=== PATIENT | female | born 1985 | race Caucasian/White ===

== ENCOUNTER 2017-05-18 14:50 | Inpatient (IN) | payer MEDICAID ==
[~2017-05-18] VITALS: Ht 165.1 cm; Wt 62.1 kg
[2017-05-18] MEDS ORDERED: ACETAMINOPHEN 325 MG TAB PO PRN (17:00)
[2017-05-18] MEDS: BETAMET NA PHOS/AC(6 MG/ML) 5ML INJ IM SCH (17:39)
[2017-05-18 17:54] VITALS: BP 102/65; PULSE 64; RESP 18
--- NOTE | 2017-05-18 18:26 | HP ---
Date/Time of Note Date/Time of Note DATE: 05/18/17 TIME: 18:19 OB - History Hx of Present Free Text/Dictation 31 years old female EDC July 04, 2017 previous , admitted to [facility] ,referred from perinatology@ 33 weeks and 3 days suspected IUGR, to receive betamethasone. Chief Complaint: Suspected IUGR Estimated Due Date: Jul 04, 2017 : 3 Para: 2 Care: Good Care Ultrasounds: Normal mid trimester US Past Family/Social History * Past Medical, Surgical, Family and Obstetric Histories reviewed from chart. Rubella: immune RPR/VDRL: Negative GBS Status: Unknown HBsAG: Negative OB Admission Exam Vital Signs Vital Signs Vital Signs Date Time Temp Pulse Resp B/P Pulse Ox O2 Delivery O2 Flow Rate FiO2 05/18/17 17:54 98.1 64 18 102/65 99 Room Air Physical Exam HEENT: WNL Lungs: Clear, Equal Abdomen: WNL Extremities: Normal Reflexes: Normal Membranes: Intact Heart Rate: 140's Accelerations: Accelerations Present Decelerations: No Decelerations Varibility: Moderate Contractions on Admission: None NOREEN FERRER MD May 18, 2017 18:26
--- NOTE | 2017-05-18 18:26 | HP ---
Date/Time of Note Date/Time of Note DATE: 05/18/17 TIME: 18:19 OB - History Hx of Present Free Text/Dictation 31 years old female EDC July 04, 2017 previous , admitted to [facility] ,referred from perinatology@ 33 weeks and 3 days suspected IUGR, to receive betamethasone. Chief Complaint: Suspected IUGR Estimated Due Date: Jul 04, 2017 : 3 Para: 2 Care: Good Care Ultrasounds: Normal mid trimester US Past Family/Social History * Past Medical, Surgical, Family and Obstetric Histories reviewed from chart. Rubella: immune RPR/VDRL: Negative GBS Status: Unknown HBsAG: Negative OB Admission Exam Vital Signs Vital Signs Vital Signs Date Time Temp Pulse Resp B/P Pulse Ox O2 Delivery O2 Flow Rate FiO2 05/18/17 17:54 98.1 64 18 102/65 99 Room Air Physical Exam HEENT: WNL Lungs: Clear, Equal Abdomen: WNL Extremities: Normal Reflexes: Normal Membranes: Intact Heart Rate: 140's Accelerations: Accelerations Present Decelerations: No Decelerations Varibility: Moderate Contractions on Admission: None NOREEN FERRER MD May 18, 2017 18:26
[2017-05-18] MEDS ORDERED: INFLUENZA VIRUS VACCINE 0.5 ML (DISPENSING) IM* ONE (18:30)
[2017-05-19] MEDS: FERROUS SULFATE (EC) 325 MG TAB PO SCH (09:42)
[2017-05-19] MEDS: PRENATAL VITAMIN PO SCH (09:42)
[2017-05-19] MEDS: LACTATED RINGER'S 1,000 ML IV SCH ×2 (12:16→19:34)
--- NOTE | 2017-05-19 13:07 | RADRPT ---
PROCEDURE: US OB biophysical profile. CLINICAL INDICATION: decreased movements TECHNIQUE: Multiple sonographic images of the pelvis were obtained. The images were reviewed on a PACS workstation. COMPARISON: No prior studies are available for comparison. FINDINGS: There is a twin viable intrauterine gestation. There is a normal amount of amniotic fluid with an MAURY = cm. Twin A Cardiac activity is present with 146 beats per minute. There is a vertex presentation. The placenta is anterior. MVP = 3.5 cm Biophysical profile: movement 2/2 tone 2/2. breathing 2/2 MAURY 2/2 Total 8/8 Twin B Cardiac activity is present with 142 beats per minute. There is a breech presentation. The placenta is anterior. MVP = 4.1 cm Biophysical profile: movement 2/2 tone 2/2. breathing 2/2 MAURY 2/2 Total 8/8 RPTAT: AA . IMPRESSION: Normal biophysical profile for twin gestation . Possible nuchal cord seen for both twins. . .Beau Torres MD, MD Date Time Electronically viewed and signed by .Beau Torres MD, MD on 05/19/2017 13:06 .S/
--- NOTE | 2017-05-19 15:47 | RADRPT ---
PROCEDURE: CERVICAL LENGTH ULTRASOUND CLINICAL INDICATION: Twins. Contractions. TECHNIQUE: Trans-vaginal imaging of the cervical canal was performed utilizing fisher-scale imaging. Sagittal and transverse images were obtained. The images were reviewed on a PACS workstation. COMPARISON: None. FINDINGS: There is no placenta previa. The cervix is closed with a length of 3.0 cm. IMPRESSION: 1. Cervical length is 3.0 cm. RPTAT: QQ .Bryson Silva MD, MD Date Time Electronically viewed and signed by .Bryson Silva MD, on 05/19/2017 15:47 .R/
[2017-05-19] MEDS: BETAMET NA PHOS/AC(6 MG/ML) 5ML INJ IM SCH (17:17)
--- NOTE | 2017-05-19 17:22 | QN ---
Documentation Comment 31 years old EDC July 04, 2017 twin 33 weeks and 3/7 day referred from perinatology to get betamethasone injection she had the first 1 one May 18 at 5 PM and the second dose today at 5 PM, during patient's stay in the hospital noted she has some contraction but denies feeling them, this was reported to perinatologist recommended Procardia 20 mg every 6 hours, imaging report today, baby A has a biophysical 8/8 weights 1819 g at 32% baby B breech biophysical 8/8 weighs 1579 g at 15%. NOREEN FERRER MD May 19, 2017 17:21
[2017-05-19] MEDS: NIFEdipine 10 MG CAP PO SCH (18:09)
[2017-05-20] MEDS: NIFEdipine 10 MG CAP PO SCH ×3 (00:12→11:46)
[2017-05-20] MEDS: LACTATED RINGER'S 1,000 ML IV SCH (04:35)
--- NOTE | 2017-05-20 05:42 | CONS ---
DATE OF ADMISSION: 05/18/2017 DATE OF CONSULTATION: So, she does feel well, but heart tone status, however, both of them have had 2 decelera tions with 1 late and 1 spontaneous deceleration, otherwise reassuring. IMPRESSION: Twin intrauterine at 33 weeks and 3 days with twin B with intrauterine growth restriction and absent end-diastolic flow, admitted for monitoring. heart tone as mentioned above. She received betamethasone. RECOMMENDATIONS: If by tomorrow heart tone is reassuring, then patient can be discharged with the testing appointment twice weekly and Dopplers twice weekly. Dictated By: AMELIA PEREZ MD ST/NTS Conf#: [id number] DID#: [id number] CC: NOREEN FERRER MD;*EndCC*
--- NOTE | 2017-05-20 05:42 | CONS ---
DATE OF ADMISSION: 05/18/2017 DATE OF CONSULTATION: So, she does feel well, but heart tone status, however, both of them have had 2 decelera tions with 1 late and 1 spontaneous deceleration, otherwise reassuring. IMPRESSION: Twin intrauterine at 33 weeks and 3 days with twin B with intrauterine growth restriction and absent end-diastolic flow, admitted for monitoring. heart tone as mentioned above. She received betamethasone. RECOMMENDATIONS: If by tomorrow heart tone is reassuring, then patient can be discharged with the testing appointment twice weekly and Dopplers twice weekly. Dictated By: AMELIA PEREZ MD ST/NTS Conf#: [id number] DID#: [id number] CC: NOREEN FERRER MD;*EndCC*
--- NOTE | 2017-05-20 05:42 | CONS ---
DATE OF ADMISSION: 05/18/2017 DATE OF CONSULTATION: So, she does feel well, but heart tone status, however, both of them have had 2 decelera tions with 1 late and 1 spontaneous deceleration, otherwise reassuring. IMPRESSION: Twin intrauterine at 33 weeks and 3 days with twin B with intrauterine growth restriction and absent end-diastolic flow, admitted for monitoring. heart tone as mentioned above. She received betamethasone. RECOMMENDATIONS: If by tomorrow heart tone is reassuring, then patient can be discharged with the testing appointment twice weekly and Dopplers twice weekly. Dictated By: AMELIA PEREZ MD ST/NTS Conf#: [id number] DID#: [id number] CC: NOREEN FERRER MD;*EndCC*
[2017-05-20] MEDS: PRENATAL VITAMIN PO SCH (09:35)
[2017-05-20] MEDS: FERROUS SULFATE (EC) 325 MG TAB PO SCH (09:35)
--- NOTE | 2017-05-20 12:30 | PD.PPDC ---
SOAKER HELPER Discharge Instruction Condition Patient Condition: Good Diet Diet: Resume Regular Diet Activity/Restrictions Activity: Bedrest Restrictions: No Exercising Follow-up Follow-up with Physician: 2, Day/Days Provider Information: Advised to make appointment to be seen at the perinatology clinic on , also to make appointment for routine care at her clinic Return to clinic for TRACK EQUIPMENT OPERATOR Instructions: Fever greater than 101 Chills Worsening abdominal pain Excessive Vaginal Bleeding More than 2 pads per hour Unable to tolerate diet NOREEN FERRER MD May 20, 2017 12:30
--- NOTE | 2017-05-20 12:30 | PD.PPDC ---
MANAGER PUBLIC Discharge Instruction Condition Patient Condition: Good Diet Diet: Resume Regular Diet Activity/Restrictions Activity: Bedrest Restrictions: No Exercising Follow-up Follow-up with Physician: 2, Day/Days Provider Information: Advised to make appointment to be seen at the perinatology clinic on , also to make appointment for routine care at her clinic Return to clinic for ENGINEERING DRAFTER Instructions: Fever greater than 101 Chills Worsening abdominal pain Excessive Vaginal Bleeding More than 2 pads per hour Unable to tolerate diet NOREEN FERRER MD May 20, 2017 12:30
--- NOTE | 2017-05-20 12:30 | PD.PPDC ---
HIDE STRETCHER HAND Discharge Instruction Condition Patient Condition: Good Diet Diet: Resume Regular Diet Activity/Restrictions Activity: Bedrest Restrictions: No Exercising Follow-up Follow-up with Physician: 2, Day/Days Provider Information: Advised to make appointment to be seen at the perinatology clinic on , also to make appointment for routine care at her clinic Return to clinic for FINISHING WIRE SAWYER Instructions: Fever greater than 101 Chills Worsening abdominal pain Excessive Vaginal Bleeding More than 2 pads per hour Unable to tolerate diet NOREEN FERRER MD May 20, 2017 12:30
--- NOTE | 2017-05-20 12:53 | DS ---
Date/Time of Note Date/Time of Note DATE: 05/20/17 TIME: 12:40 Discharge Summary Admission/Discharge Info Admit Date/Time May 18, 2017 at 14:50 Discharge Date/Time May 20, 2017 at 12:40 PM Discharge Diagnosis 33 weeks4/7 days twin suspected baby B is IUGR, at 15th percentile, while patient was in the antepartum unit received 2 doses of betamethasone noted some mild contractions mostly not felt, ultrasound reported cervical length 3 cm, patient discharged home on Procardia 20 mg every 6 hours, recommended to make appointment with perinatologist to be seen on May 22, and to continue her care at her MD ,s office. Patient Condition: Good Consults Perinatologist Procedures Observation, evaluation in the hospital steroid injection, biophysical profile Hx of Present Illness 33 weeks 4 days twin suspected baby B with IUGR Hospital Course Satisfactory Follow-up Plan Appointment perinatology clinic on May 22 Primary Care Provider [facility] Time spent on discharge: < 30 minutes NOREEN FERRER MD May 20, 2017 12:50
== END 2017-05-20 14:30 | disposition home or self-care (01) | DRG 782 ==
LOC: OBG 14:50
PROVIDERS: ADMIT Obstetrics & Gynecology; ATTEND Obstetrics & Gynecology
DX: O36.5931 Maternal care for other known or suspected poor fetal growth, third trimester, fetus 1 (principal); O30.003 Twin pregnancy, unspecified number of placenta and unspecified number of amniotic sacs, third trimester; Z3A.33 33 weeks gestation of pregnancy
CPT/HCPCS: 59025; 76816; 76817; 76818; 76820; 90686; G0463; J0702; J7120

== ENCOUNTER 2017-05-29 12:33 | Inpatient (IN) | payer MEDICAID ==
[~2017-05-29] VITALS: Ht 165.1 cm; Wt 65.0 kg
[~2017-05-29 12:33] MED LIST: PREN-32 PO
[2017-05-29] MEDS ORDERED: NIFE100P10 MC (12:53)
[2017-05-29] MEDS ORDERED: CEFAZOLIN 2 GM/50 ML (PMX) 50 ML IVPB ONE (13:52)
[2017-05-29 14:00] LABS: ABNORMAL IP MESSAGE 1; BASOPHIL # 0.1 10^3/ul (0.0-0.1); BASOPHILS % 0.4 % (0.0-2.0); EOSINOPHILS # 0.1 10^3/ul (0.0-0.5); EOSINOPHILS % 0.6 % (0.0-7.0); HEMOGLOBIN 10.5 g/dl (12.0-16.0); LYMPHOCYTES % 17.1 % (15.0-51.0); MEAN CORPUSCULAR HEMOGLOBIN 25.9 pg (29.0-33.0); MEAN CORPUSCULAR HGB CONC 31.8 g/dl (32.0-37.0); MEAN CORPUSCULAR VOLUME 81.3 fl (82.0-101.0); MEAN PLATELET VOLUME 13.8 fl (7.4-10.4); MONOCYTES % 8.7 % (0.0-11.0); NEUTROPHIL # 8.4 10^3/ul (1.6-7.5); NEUTROPHILS % 72.8 % (39.0-77.0); PLATELET COUNT 166 10^3/UL (140-415); RED BLOOD COUNT 4.06 10^6/ul (4.20-5.40); RED CELL DISTRIBUTION WIDTH 14.2 % (11.5-14.5); WHITE BLOOD COUNT 11.5 10^3/ul (4.8-10.8)
[2017-05-29] MEDS ORDERED: OXYTOCIN 30 UNITS/LR 500 ML IV PRN ×4 (14:00→23:00)
[2017-05-29] MEDS ORDERED: MISOPROSTOL 200 MCG TAB PR PRN ×4 (14:00→23:00)
[2017-05-29] MEDS ORDERED: METHYLERGONOVINE 0.2 MG INJ IM PRN ×4 (14:00→23:00)
[2017-05-29] MEDS ORDERED: CARBOPROST 250 MCG INJ IM PRN ×4 (14:00→23:00)
[2017-05-29 14:03] LABS: POSITIVE DIFF @See below
[2017-05-29 14:15] LABS: INR 0.86; PROTIME 11.7 Sec (12.2-14.2); PT RATIO 0.9
[2017-05-29] MEDS: LACTATED RINGER'S 1,000 ML IV SCH ×2 (14:22→15:44)
[2017-05-29] MEDS ORDERED: OXYTOCIN 30 UNITS/LR 500 ML IV SCH ×2 (14:30→22:53)
[2017-05-29] MEDS ORDERED: CEFAZOLIN 2 GM/50 ML (PMX) 50 ML IV SCH (14:30)
[2017-05-29] MEDS ORDERED: ONDANSETRON 4 MG INJ ONE ×2 (15:22→17:06)
[2017-05-29] MEDS ORDERED: METOCLOPRAMIDE 10 MG INJ ONE (17:06)
[2017-05-29] MEDS ORDERED: morphine SULFATE/PF (10 MG/10 ML) INJ ONE (17:06)
[2017-05-29] MEDS ORDERED: KETOROLAC 30 MG INJ ONE (17:17)
[2017-05-29] MEDS ORDERED: FENTAnyl 50 MCG/ML VIAL ONE (17:45)
[2017-05-29] MEDS ORDERED: EPHEDrine SULFATE 50 MG/5 ML SYG ONE (17:57)
[2017-05-29] MEDS ORDERED: morphine 4 MG/ML VIAL IV PRN (18:30)
[2017-05-29] MEDS ORDERED: morphine 2 MG INJ IV PRN ×2 (18:30)
[2017-05-29] MEDS ORDERED: NALOXONE (0.4 MG/ML) INJ IV PRN (18:30)
[2017-05-29] MEDS ORDERED: DIPHENHYDRAMINE 50 MG INJ IV PRN (18:30)
[2017-05-29] MEDS ORDERED: ONDANSETRON 4 MG INJ IV PRN ×2 (18:30)
[2017-05-29] MEDS ORDERED: morphine (1 MG/ML) 10ML SYRINGE IV PRN ×3 (18:30)
--- NOTE | 2017-05-29 18:30 | OPR ---
Operative Report Planned Procedure Free Text/Dictation 34 weeks 6 days twin suspected IUGR on both babies more advanced on baby B perinatologist recommended delivery, history of previous ,EDC July 04, 2017 Procedure date May 29, 2017 Procedure(s) Repeat for twin suspected IUGR Performed by see signature line Assisting provider: JENNIFFER MENENDEZ MD Pre-procedure diagnosis 34 weeks 6 days twin suspected IUGR on both babies more advanced on baby B. perinatologist recommended delivery Anesthesia Type: spinal Procedure Description Under satisfactory spinal [] anesthesia, the patient was prepped and draped and placed in a supine position, tilted to the left. Pfannenstiel incision was made , carried through the subcutaneous tissue. Bleeders brought under control with electrocautery. Fascia incised to the length of the incision. Rectus muscles from the fascia, divided midline. Peritoneum exposed, entered through a transverse incision. Exploration of abdomen revealed gravid uterus normal- appearing tubes and ovaries. Bladder flap was developed. Transverse incision was made in the lower segment of the uterus. Amniotic sac of baby A ruptured. Clear [] amniotic fluid noted live baby girl was delivered from unengaged vertex. [] Nasal oropharyngeal suction was performed. baby handed to the team for immediate attention, amniotic sac of baby B ruptured live baby girl was delivered from mikki breech presentation nasal oropharyngeal suction was performed and baby handed to the team for immediate attention. The placenta was delivered manually intact sent to the pathology. Uterine cavity was cleaned with wet sponge and drainage established. Uterus closed in 2 layers using Monocryl #1 [] in continuous fashion. Peritoneal cavity irrigated with warm saline. Sponge, needle and instrument count reported to be correct. Abdominal peritoneum closed with 0 chromic catgut [] continuously. Rectus muscle approximated with [few interrupted 2-0 chromic catgut]. Fascia closed with [#1 PDS], subcutaneous tissue approximated with few interrupted 2-0 chromic catgut skin closed with N sorb estimated blood loss 700 cc urine bag contained 300 cc of clear urine patient tolerated procedure well transferred to recovery room in good condition Post-Procedure Findings: Live Baby A GIRL, 9 and 9 WT 3 lbs. 13 oz. Baby B girl 8 and 9 weight 3 lbs. 3 oz. Estimated blood loss: other (700 cc) Specimen(s): no Grafts/Implants: no Complication(s): no Pt Condition post procedure: stable Physician Certification I, the undersigned physician, hereby certify that I have discussed the procedure described in this consent form with this patient (or the patient's legal procurement representative), including: * The risk and benefits of the procedure; * Any adverse reactions that may reasonably be expected to occur; * Any alternative efficacious methods of treatment which may be medically viable ; * The potential problems that may occur during recuperation; * Potential for blood transfusion and associated risks/benefits; and * Any research or economic interest I may have regarding this treatment. I further certify that the patient/legally responsible person was encouraged to ask question and that all questions were answered. NOREEN FERRER MD May 29, 2017 18:25
[2017-05-29 18:44] VITALS: Ht 165.1 cm; Wt 65.0 kg
--- NOTE | 2017-05-29 18:50 | HP ---
Date/Time of Note Date/Time of Note DATE: 05/29/17 TIME: 18:31 OB - History Hx of Present Free Text/Dictation 31 years old female history of previous , twin which is complicated with IUGR on both babies more advanced on baby B , perinatologist recommended delivery the reason for delivery and indication was discussed with the mother, concerns and risks regarding the prematurity of both babies and possibility that baby's may have to be transferred to intensive care unit explained to the mother, her question answered , complication of the including but not limited to bowel and bladder injury wound hematoma and infection explained to her , she is willing to proceed with the operation Chief Complaint: 34 weeks 6 days twin history of previous suspected IUGR Estimated Due Date: Jul 04, 2017 : 3 Para: 2 Care: Good Care Ultrasounds: Abnormal US findings Obstetrical Complications: Growth Restriction Medical Complications: None Past Family/Social History * Past Medical, Surgical, Family and Obstetric Histories reviewed from chart. Rubella: immune RPR/VDRL: Negative GBS Status: Negative HBsAG: Negative OB Admission Exam Physical Exam HEENT: WNL Heart: Rhythm Normal Lungs: Clear, Equal Extremities: Normal Reflexes: Normal Cervical Dilatation: None Effacement: 0% Membranes: Intact Accelerations: Accelerations Present Decelerations: No Decelerations Varibility: Moderate Last 72 hours Lab Results CBC & BMP 05/29/17 13:00 OB Assessment/Plan Reason for admission: other (34 weeks 6 days twin complicated with IUGR on both babies) Other plan: 31 years old history of previous with twins at 34 weeks and 6 days undergoing a repeat section recommended by the perinatologist due to growth restriction on both babies more advanced on baby B , reason for delivery of the baby's at 34 weeks and 6 days explained to the patient with possibility of transfer of both babies to intensive care unit, also complication of surgery including but not limited to bowel and bladder injury infection hemorrhage and wound hematoma explained she is willing to proceed with the operation. NOREEN FERRER MD May 29, 2017 18:41
[2017-05-29] MEDS: KETOROLAC 30 MG INJ IV PRN (20:25)
[2017-05-29 21:05] VITALS: BP 120/69; PULSE 79; RESP 18
[2017-05-29] MEDS ORDERED: LANOLIN 7 GM TUBE TOP PRN ×2 (23:00)
[2017-05-29] MEDS ORDERED: HYDROCODONE/APAP (5/325) TAB PO PRN ×2 (23:00)
[2017-05-29] MEDS ORDERED: CEFAZOLIN 1 GM/50 ML (PMX) 50 ML IVPB SCH ×2 (23:00)
[2017-05-29] MEDS ORDERED: OXYCODONE/ACETAMINOPHEN (5/325) TAB PO PRN ×2 (23:00)
[2017-05-29] MEDS: OXYTOCIN 30 UNITS/LR 500 ML IV SCH (23:20)
[2017-05-30] VITALS: BP 109/67; PULSE 59; RESP 18
[2017-05-30] MEDS: KETOROLAC 30 MG INJ IV PRN ×2 (02:13→11:53)
[2017-05-30 04:00] VITALS: BP 124/74; PULSE 58; RESP 18
[2017-05-30] MEDS: OXYTOCIN 30 UNITS/LR 500 ML IV SCH ×2 (04:12→07:51)
[2017-05-30 08:07] VITALS: BP 130/84; PULSE 59; RESP 18
[2017-05-30 08:39] LABS: ABNORMAL IP MESSAGE 1; BASOPHILS % 0.2 % (0.0-2.0); EOSINOPHILS % 0.1 % (0.0-7.0); HEMATOCRIT 27.4 % (37.0-47.0); HEMOGLOBIN 8.6 g/dl (12.0-16.0); LYMPHOCYTES # 1.6 10^3/ul (0.8-2.9); LYMPHOCYTES % 9.6 % (15.0-51.0); MEAN CORPUSCULAR HEMOGLOBIN 25.2 pg (29.0-33.0); MEAN CORPUSCULAR HGB CONC 31.4 g/dl (32.0-37.0); MEAN CORPUSCULAR VOLUME 80.4 fl (82.0-101.0); MEAN PLATELET VOLUME 13.4 fl (7.4-10.4); MONOCYTES % 6.1 % (0.0-11.0); NEUTROPHIL # 13.7 10^3/ul (1.6-7.5); NEUTROPHILS % 83.5 % (39.0-77.0); PLATELET COUNT 126 10^3/UL (140-415); RED BLOOD COUNT 3.41 10^6/ul (4.20-5.40); RED CELL DISTRIBUTION WIDTH 14.6 % (11.5-14.5); WHITE BLOOD COUNT 16.5 10^3/ul (4.8-10.8)
[2017-05-30 08:52] LABS: POSITIVE DIFF @See below
[2017-05-30] MEDS ORDERED: SENNA/DOCUSATE NA (8.6MG/50MG) TAB PO SCH (09:00)
[2017-05-30] MEDS: SENNA/DOCUSATE NA (8.6MG/50MG) TAB PO SCH ×2 (09:00→22:34)
[2017-05-30 12:00] VITALS: BP 116/75; PULSE 66; RESP 17
--- NOTE | 2017-05-30 12:49 | QN ---
Documentation Comment pod1 pt d oing well vss exam wnl CDI a/p pod 1 continue care ERNESTINE BATRES MD May 30, 2017 12:49
[2017-05-30] MEDS: LACTATED RINGER'S 1,000 ML IV SCH ×2 (13:36→21:00)
[2017-05-30 16:00] VITALS: BP 112/73; PULSE 57; RESP 18
[2017-05-30] MEDS ORDERED: IBUPROFEN 600 MG TAB PO SCH (18:00)
--- NOTE | 2017-05-30 18:07 | PN ---
Date/Time of Note Date/Time of Note DATE: 05/30/17 TIME: 18:05 Assessment/Plan VTE Prophylaxis VTE Prophylaxis Intervention: ambulation Lines/Catheters IV Catheter Type (from Nrsg): Peripheral IV Subjective 24 Hr Interval Summary Free Text/Dictation Anesthesia note: A 31 year female s/p spinal duramorph is doing fine, no complains, headache, itching, breathing difficulty, n/v. back is clean , no sensory or motor deficit. no inflammation on back. care per surgery Exam/Review of Systems Vital Signs Vitals Vital Signs Date Time Temp Pulse Resp B/P Pulse Ox O2 Delivery O2 Flow Rate FiO2 05/30/17 16:00 98.3 57 18 112/73 Room Air 05/30/17 08:07 98 05/30/17 03:00 21 Intake and Output 05/29/17 05/29/17 05/30/17 15:00 23:00 07:00 Intake Total 310 ml 740 ml Output Total 1150 ml 300 ml Balance -840 ml 440 ml Results Result Diagram: 05/30/1718 Results 24 hrs Laboratory Tests Test 05/30/17 08:18 White Blood Count 16.5 #H Red Blood Count 3.41 L Hemoglobin 8.6 L Hematocrit 27.4 L Mean Corpuscular Volume 80.4 L Mean Corpuscular Hemoglobin 25.2 L Mean Corpuscular Hemoglobin Concent 31.4 L Red Cell Distribution Width 14.6 H Platelet Count 126 #L Mean Platelet Volume 13.4 H Neutrophils % 83.5 H Lymphocytes % 9.6 L Monocytes % 6.1 Eosinophils % 0.1 Basophils % 0.2 Nucleated Red Blood Cells % 0.0 Neutrophils # 13.7 H Lymphocytes # 1.6 Monocytes # 1.0 H Eosinophils # 0.0 Basophils # 0.0 Nucleated Red Blood Cells # 0.0 Medications Medications Current Medications Naloxone HCl (Narcan) 0.1 mg Q2M PRN IV FOR RESP RATE 8 OR LESS; Start at 18:30; Stop 05/30/17 at 18:29 Ketorolac Tromethamine (Toradol) 30 mg Q6H PRN IV PAIN Last administered on t 11:53; Admin Dose 30 MG; Start 05/29/17 at 18:30; Stop 05/30/17 at 18: 29 Morphine Sulfate (morphine) 3 mg Q3 PRN IV BREAKTHROUGH PAIN; Start 05/29/17 at 18:30; Stop 05/30/17 at 18:29 Morphine Sulfate (morphine) 2 mg Q3H PRN IV PAIN LEVEL 1-5; Start 05/29/17 at 18:30; Stop 05/30/17 at 18:29 Morphine Sulfate (morphine) 4 mg Q3H PRN IV PAIN LEVEL 6-10; Start 05/29/17 at 18:30; Stop 05/30/17 at 18:29 Diphenhydramine HCl (Benadryl) 25 mg Q6H PRN IV ITCHING; Start 05/29/17 at 18: 30; Stop 05/30/17 at 18:29 Ondansetron HCl (Zofran Inj) 4 mg Q6H PRN IV NAUSEA AND/OR VOMITING; Start 05/05 at 18:30; Stop 05/30/17 at 18:29 Acetaminophen/ Hydrocodone Bitart ([place] (5/325)) 1 tab Q4H PRN PO PAIN LEVEL 4 -6; Start 05/30/17 at 18:30 Acetaminophen/ Hydrocodone Bitart ([place] (5/325)) 2 tab Q4H PRN PO PAIN LEVEL 7 -10; Start 05/30/17 at 18:30 Oxycodone/ Acetaminophen (Percocet (5/ 325)) 1 tab Q4H PRN PO PAIN LEVEL 4-6; Start 05/30/17 at 18:30 Oxycodone/ Acetaminophen (Percocet (5/ 325)) 2 tab Q4H PRN PO PAIN LEVEL 7-10; Start 05/30/17 at 18:30 Ibuprofen (Motrin) 600 mg Q6 PO ; Start 05/30/17 at 18:00 Simethicone (Mylicon) 160 mg Q8H PRN PO DISTENSION/GAS/BLOATING; Start at 23:00 Senna/Docusate Sodium (Senokot-S) 1 tab BID PO ; Start 05/30/17 at 09:00 Diphtheria/ Tetanus/Acell Pertussis 0.5 ml 0.5 ml ONCE ONCE IM* ; Start at 09:00; Stop 06/01/17 at 09:01 Oxytocin/Lactated Ringer's 500 ml @ 0 mls/hr ONCE PRN IV For Hemorrhage Management; Start 05/29/17 at 23:00 Methylergonovine Maleate (Methergine) 0.2 mg ONCE PRN IM VAGINAL BLEEDING; Start 05/29/17 at 23:00 Carboprost Tromethamine (Hemabate) 250 mcg ONCE PRN IM VAGINAL BLEEDING; Start 05/29/17 at 23:00 Misoprostol 1000 mcg 1,000 mcg ONCE PRN [place] VAGINAL BLEEDING; Start 05/29/17 at 23:00 Lactated Ringer's (Lr) 1,000 ml @ 125 mls/hr Q8H IV Last administered on 05/30t 13:36; Admin Dose 125 MLS/HR; Start 05/30/17 at 13:00 LIZBETH LAMAR MD May 30, 2017 18:07
[2017-05-30] MEDS: IBUPROFEN 600 MG TAB PO SCH ×2 (18:11→23:34)
[2017-05-30] MEDS ORDERED: OXYCODONE/ACETAMINOPHEN (5/325) TAB PO PRN ×2 (18:30)
[2017-05-30] MEDS ORDERED: HYDROCODONE/APAP (5/325) TAB PO PRN ×2 (18:30)
[2017-05-30 20:00] VITALS: BP 110/62; PULSE 77; RESP 20
[2017-05-31 04:11] VITALS: BP 108/62; PULSE 70; RESP 20
[2017-05-31] MEDS: LACTATED RINGER'S 1,000 ML IV SCH (05:00)
[2017-05-31] MEDS: IBUPROFEN 600 MG TAB PO SCH ×3 (05:32→17:26)
[2017-05-31 07:50] VITALS: BP 116/78; PULSE 70; RESP 16
[2017-05-31] MEDS: SENNA/DOCUSATE NA (8.6MG/50MG) TAB PO SCH ×2 (09:00→21:31)
--- NOTE | 2017-05-31 09:38 | QN ---
Documentation Comment Post day 2 Afebrile Vital signs are stable Abdomen soft, bowel sounds present, no bowel movement, extremities normal, fleets enema recommended NOREEN FERRER MD May 31, 2017 09:38
[2017-05-31] MEDS ORDERED: NA PHOSPHATE/BIPHOS 133 ML ENEMA PR ONE (10:00)
[2017-05-31 15:11] VITALS: BP 112/71; PULSE 97; RESP 16
[2017-05-31 20:20] VITALS: BP 121/71; PULSE 80; RESP 18
[2017-06-01] MEDS: IBUPROFEN 600 MG TAB PO SCH ×3 (00:06→08:54)
[2017-06-01 04:20] VITALS: BP 107/68; PULSE 70; RESP 18
[2017-06-01 07:30] VITALS: BP 117/75; PULSE 61; RESP 18
[2017-06-01] MEDS: SENNA/DOCUSATE NA (8.6MG/50MG) TAB PO SCH (08:54)
[2017-06-01] MEDS ORDERED: DIPHTH/TET/ACEL PERTUSS (ADULT) 0.5 ML VIAL IM* ONE ×2 (09:00)
--- NOTE | 2017-06-01 09:54 | PD.PPDC ---
PORCELAIN SLUSHER Discharge Instruction Condition Patient Condition: Good Activity/Restrictions Activity: Normal Activity May Shower Restrictions: No Exercising No Lifting No Driving No Sexual Activity Nothing in the Vagina No [place] No Tampons, douche Wound/Drain Care Instructions Wound/Drain Care Instructions: Remove Steri Strips in 1 week Follow-up Follow-up with Physician: 1 Return to clinic for NAILHEAD SETTER Instructions: Fever greater than 101 Chills Worsening abdominal pain Excessive Vaginal Bleeding More than 2 pads per hour Unable to tolerate diet OB Instructions: Breast Tenderness Depression Blurried Vision Headache Surgical Instructions: Incisional Drainage Incisional Redness NOREEN FERRER MD Jun 01, 2017 09:54
--- NOTE | 2017-06-01 10:03 | DS ---
Date/Time of Note Date/Time of Note DATE: 06/01/17 TIME: 09:59 Discharge Summary Admission/Discharge Info Admit Date/Time May 29, 2017 at 12:33 Discharge Date/Time June 01, 2017 at 10 AM Discharge Diagnosis Post repeat with twin Patient Condition: Good Procedures Repeat Hx of Present Illness Twin suspected IUGR perinatologist. recommended delivery. Hospital Course Satisfactory recovery uneventful Home Meds Reported Medications Nifedipine (Nifedipine) 100 Gm Powder, 20 GM MC Q6 05/29/17 #103/Iron Fumarate/FA ( Tablet) 1 Each Tablet, 1 EACH PO, TAB 05/29/17 Follow-up Plan Post instructions given recommended patient to make appointment in 1 week to be seen at the clinic Primary Care Provider [facility] Time spent on discharge: < 30 minutes NROEEN FERRER MD Jun 01, 2017 10:03
== END 2017-06-01 14:55 | disposition home or self-care (01) | DRG 765 ==
LOC: L-D 12:33 → PP1 21:08 → EDSTATUS 06-18 12:32
PROVIDERS: ADMIT Obstetrics & Gynecology; ATTEND Obstetrics & Gynecology
PROC: 10D00Z1 Extraction of Products of Conception, Low, Open Approach (ICD-10-PCS; principal; 2017-05-29 17:30)
DX: O36.5931 Maternal care for other known or suspected poor fetal growth, third trimester, fetus 1 (principal); O36.5932 Maternal care for other known or suspected poor fetal growth, third trimester, fetus 2; O30.033 Twin pregnancy, monochorionic/diamniotic, third trimester; O34.219 Maternal care for unspecified type scar from previous cesarean delivery; Z37.2 Twins, both liveborn; Z3A.34 34 weeks gestation of pregnancy
CPT/HCPCS: 76815; 76818; 85025; 85610; 85730; 86592; 86762; 86850; 86900; 86901; 87340; 94760; 99464; J0690; J1885; J2270; J2274; J2405; J2590; J2765; J3010; J7120